=== PATIENT | female | born 1975 | race Two or more races ===

== ENCOUNTER → 2017-05-04 | Outpatient (CLI) | payer MEDICAID ==
[~2017-05-04] MED LIST: ALBUTEROL17 GM INH; BENZONATATE PO; COLACE50 MG PO; DICLOFENAC PO; DUONEB 2.5-0.5 M3 ML NEB; FLONASE16 GM; GUAIFENESIN200 M1 PO; HYCODAN60 ML 5MG/ PO; MOTRIN600 MG PO; MYCOSTATIN POWD15 GM EXT; NAPROSYN500 MG PO; POLYTRIM O10 ML OPTH OD; PREDNISONE PO; PREDNISONE10 MG PO; ZITHROMAX PO; ZYRTEC10 M2 PO
--- NOTE | ~2017-05-04 | US6 ---
[facility] A Service of [facility] & [facility] RADIOLOGY TEXT RESULTS PATIENT: MARA KAUR LOCATION: [facility] : 77 UNIT #: [id number] AGE: [address]: Ninfa Leavitt MD SEX: F ORDER DR: [id number] [facility] [address] [place], [place] [address] [id number] O MR#: [id number] Acc #: [id number] NAME: MARA KAUR : 1975 SEX: F STUDY DATE/TIME: 05/04/2017 10:18 UNIT: [facility] ROOM: STUDY DESCRIPTION: US Abdominal Limited Attending Physician: Ninfa Leavitt M.D. Referring Physician: Ninfa Leavitt M.D. Ordering Physician: Ninfa Leavitt M.D. Primary Care Physician: Ninfa Leavitt M.D. MEDICAL IMAGING REPORT This report is preliminary unless electronic signature is present EXAM Right upper quadrant ultrasound 05/04/2017 HISTORY Right upper quadrant abdominal pain for 1 month. FINDINGS The liver is homogeneous in echotexture and demonstrates no cystic or solid mass lesions. The intra and extrahepatic bile ducts are not dilated. The gallbladder contains multiple shadowing gallstones but there is no evidence of gallbladder wall thickening or pericholecystic fluid. The common duct measures 5 mm. The pancreas and right kidney are normal. IMPRESSION Cholelithiasis. Dictated by... Marquise Marquez M.D. THIS IS AN ELECTRONICALLY VERIFIED REPORT Marquise Marquez M.D. at 05/05/2017 7:20 AM Deedee TD: 05/04/2017 16:46 JOB #: [id number] MEDICAL IMAGING REPORT Page 1 of 1 COPY
== END | disposition home or self-care (01) ==
LOC: CGUS 09:58
DX: R10.9 Unspecified abdominal pain (principal); K80.20 Calculus of gallbladder without cholecystitis without obstruction
CPT/HCPCS: 76705